=== PATIENT | female | born 1965 | race Caucasian/White ===

== ENCOUNTER 2017-12-27 17:31 | Inpatient (IN) | payer MEDICARE, MEDICAID ==
[~2017-12-27] VITALS: Ht 165.1 cm; Wt 80.6 kg
[~2017-12-27 17:31] MED LIST: ACIPHEX20 MG PO; ANTIDEPRESSANT; ATARAX25 MG PO; ATIVAN0.5 MG PO; BENTYL10 MG PO; CELEXA20 MG PO; CLARITIN10 MG PO; CLONAZEPAM1 M1 PO; DAYPRO600 M1 PO; DELTASONE5 MG PO; EES400 MG PO; Fioricet 325 MG1 TAB PO; K-DUR 20MEQ20 MEQ PO; KENALOG0.025% TP; KLONOPIN2 MG PO; LANTUS100 U/ML SC; LEXAPRO5 MG; LISINOPRIL PO; LISINOPRIL2.5 MG PO; METFORMIN850 MG PO; MYCOLOG CREAM 115 GM PO; NEW MED; NORVASC5 MG PO; POTASSIUM20 MEQ PO; PRILOSEC20 M1 PO; PRILOSEC40 MG PO; SEROQUEL400 M1 PO; SYNTHROID,LEVO75 MCG PO; SYNTHROID0.1 MG PO; TOPAMAX2 MG; TOPAMAX50 MG PO; VICODIN 5/500 505 MG PO; VISTARIL25 M1; ZESTRIL10 MG PO; ZESTRIL5 MG PO; ZOFRAN ODT4 MG SL
[2017-12-27 17:32] VITALS: BP 152/91
[2017-12-27 17:51] LABS: BILIRUBIN NEGATIVE (NEGATIVE); BLOOD NEGATIVE (NEGATIVE); CLARITY CLEAR (CLEAR); COLOR YELLOW (YELLOW); GLUCOSE NEGATIVE (NEGATIVE); KETONE NEGATIVE (NEGATIVE); LEUKO ESTERASE NEGATIVE (NEGATIVE); NITRITE NEGATIVE (NEGATIVE); PH 6.5 (5.0-9.0); SPECIFIC GRAVITY 1.025 (1.005-1.030); UROBILINOGEN 0.2 E.U./dl (0.2-1.0)
[2017-12-27 18:02] LABS: BACTERIA 1+; MUCOUS TRACE; RBC 0-2 rbc/hpf (0-2)
[2017-12-27 18:43] LABS: BASO # 0.1 10*3/uL (0.0-0.1); BASO % 0.8 % (0.0-1.0); EOS # 0.2 10*3/uL (0.0-0.4); EOS % 2.7 % (1.0-4.0); HEMATOCRIT 40.2 % (37.0-47.0); LYMPH # 2.1 10*3/uL (1.3-4.4); LYMPH % 27.7 % (27.0-41.0); MEAN CELL VOLUME 82.2 fl (81.0-99.0); MEAN CORPUSCULAR HGB 28.6 pg (27.0-31.0); MEAN CORPUSCULAR HGB CONC 34.8 g/dl (33.0-37.0); MEAN PLATELET VOLUME 9.8 fl (9.6-12.3); MONO # 0.6 10*3/uL (0.1-1.0); MONO % 7.4 % (3.0-9.0); NEUT # 4.6 10*3/uL (2.3-7.9); NEUT % 60.7 % (47.0-73.0); PLATELET COUNT AUTOMATED 203 10*3/uL (130-400); RED BLOOD COUNT 4.89 10*6/uL (4.10-5.10); RED CELL DISTRI WIDTH 14.7 % (0-14.5); WHITE BLOOD COUNT 7.5 10*3/uL (4.8-10.8)
[2017-12-27 18:58] LABS: ALBUMIN 3.5 gm/dl (3.1-4.5); CREATININE 1.46 mg/dL (0.55-1.02); POTASSIUM 3.8 mmol/L (3.5-5.1); TOTAL PROTEIN 6.9 gm/dL (6.4-8.2)
[2017-12-27 20:52] VITALS: BP 142/72
[2017-12-27] MEDS ORDERED: PRISTIQ50 MG PO (21:21)
[2017-12-27] MEDS ORDERED: RANITIDINE HCL150 M1 PO (21:21)
[2017-12-27] MEDS ORDERED: Synthroid,Levo50 MCG PO (21:22)
[2017-12-27] MEDS ORDERED: COZAAR100 MG PO (21:22)
[2017-12-27] MEDS ORDERED: HYDROXYZINE HCL50 MG PO ×2 (21:24)
[2017-12-27 23:31] VITALS: BP 170/100
[2017-12-28] VITALS (7 sets, daily range): BP systolic 118–168; BP diastolic 76–90
[2017-12-28 06:43] LABS: BASO # 0.1 10*3/uL (0.0-0.1); BASO % 0.9 % (0.0-1.0); EOS # 0.1 10*3/uL (0.0-0.4); EOS % 2.1 % (1.0-4.0); HEMATOCRIT 38.3 % (37.0-47.0); HEMOGLOBIN 13.4 g/dl (12.0-16.0); LYMPH # 1.8 10*3/uL (1.3-4.4); LYMPH % 31.2 % (27.0-41.0); MEAN CELL VOLUME 81.8 fl (81.0-99.0); MEAN CORPUSCULAR HGB 28.6 pg (27.0-31.0); MEAN PLATELET VOLUME 9.8 fl (9.6-12.3); MONO # 0.5 10*3/uL (0.1-1.0); MONO % 8.5 % (3.0-9.0); NEUT # 3.2 10*3/uL (2.3-7.9); NEUT % 56.3 % (47.0-73.0); PLATELET COUNT AUTOMATED 186 10*3/uL (130-400); RED BLOOD COUNT 4.68 10*6/uL (4.10-5.10); RED CELL DISTRI WIDTH 14.7 % (0-14.5); WHITE BLOOD COUNT 5.7 10*3/uL (4.8-10.8)
[2017-12-28 06:59] LABS: ALBUMIN 3.3 gm/dl (3.1-4.5); ALKALINE PHOSPHATASE 113 U/L (45-117); BUN 16 mg/dl (7-24); CHLORIDE 110 mmol/L (98-107); CHOLESTEROL 131 mg/dL (<200); CREATININE 1.05 mg/dL (0.55-1.02); FREE T4 0.67 ng/dl (0.76-1.46); HDL CHOLESTEROL 53 mg/dl (40-60); LDL CHOLESTEROL 66 mg/dL (9-159); PHOSPHOROUS 2.9 mg/dL (2.5-4.9); POTASSIUM 3.5 mmol/L (3.5-5.1); SGOT/AST 13 IU/L (3-35); SGPT/ALT 17 U/L (12-78); SODIUM 143 mmol/L (136-145); TOTAL PROTEIN 6.5 gm/dL (6.4-8.2); TRIGLYCERIDES 62 mg/dl (<150); VLDL CHOLESTEROL 12 mg/dL (6-40)
[2017-12-28 07:35] LABS: VITAMIN D, 25-HYDROXY 17.6 ng/mL (30-100)
[2017-12-29] VITALS: BP 143/70
[2017-12-29 06:51] LABS: BUN 11 mg/dl (7-24); CHLORIDE 108 mmol/L (98-107); CREATININE 0.96 mg/dL (0.55-1.02); POTASSIUM 3.6 mmol/L (3.5-5.1); SODIUM 142 mmol/L (136-145)
[2017-12-29 08:00] VITALS: BP 154/84
[2017-12-29 12:00] VITALS: BP 148/77
[2017-12-29] MEDS ORDERED: ZOFRAN ODT4 MG SL (13:39)
[2017-12-29] MEDS ORDERED: HYDROCODONE-AC1 EAC1 PO (13:39)
== END 2017-12-29 17:42 | disposition home or self-care (01) | DRG 393 ==
LOC: ED 17:31 → 5E 20:09 → EDHOLD 20:09 → 5E 20:25
PROVIDERS: Emergency Medicine; Family Medicine; Internal Medicine; Student in an Organized Health Care Education/Training Program
DX: K37 Unspecified appendicitis (principal); N17.0 Acute kidney failure with tubular necrosis; E44.0 Moderate protein-calorie malnutrition; K59.00 Constipation, unspecified; N18.3 Chronic kidney disease, stage 3 (moderate); D49.7 Neoplasm of unspecified behavior of endocrine glands and other parts of nervous system; R74.8 Abnormal levels of other serum enzymes; R91.1 Solitary pulmonary nodule; F31.9 Bipolar disorder, unspecified; I12.9 Hypertensive chronic kidney disease with stage 1 through stage 4 chronic kidney disease, or unspecified chronic kidney disease; E11.65 Type 2 diabetes mellitus with hyperglycemia; K21.9 Gastro-esophageal reflux disease without esophagitis; K76.0 Fatty (change of) liver, not elsewhere classified; E66.9 Obesity, unspecified; Z87.442 Personal history of urinary calculi; Z91.041 Radiographic dye allergy status; Z88.0 Allergy status to penicillin; Z98.2 Presence of cerebrospinal fluid drainage device; Z79.4 Long term (current) use of insulin; Z88.8 Allergy status to other drugs, medicaments and biological substances; Z79.899 Other long term (current) drug therapy; Z90.710 Acquired absence of both cervix and uterus; Z83.3 Family history of diabetes mellitus; Z82.49 Family history of ischemic heart disease and other diseases of the circulatory system; Z80.8 Family history of malignant neoplasm of other organs or systems; Z90.49 Acquired absence of other specified parts of digestive tract; Z83.6 Family history of other diseases of the respiratory system; Z68.29 Body mass index [BMI] 29.0-29.9, adult

== ENCOUNTER 2018-04-10 23:22 | Emergency (ER) | payer MEDICARE, MEDICAID ==
[~2018-04-10] VITALS: Ht 165.1 cm; Wt 81.6 kg
--- NOTE | ~2018-04-10 | EKG ---
[place], [place] ELECTROCARDIOGRAM REPORT NAME: SARI QUINONES UNIT #: [id number] ROOM: DOCTOR: EPIPHANY DRAFT REPORT BIRTHDATE: [birth year] [facility] Test Date: 2018-04-11 Test Time: 00:25:10 Pat Name: SARI QUINONES Department: ER Room: 3 Gender: F Senior Qualitative Researcher: Lindsey Judd : [id number] Requested By: PEREZ JONES Order Number: [id number] Reading MD: Brian Acharya MD Measurements Intervals [place] Rate: 105 P: 28 ID: [id number] QRS: -28 QRSD: 107 T: 44 QT: 387 QTc: 512 Interpretive Statements Sinus tachycardia Borderline left axis deviation RSR' in V1 or V2, probably normal variant Prolonged QT interval Baseline wander in lead(s) V3 No previous ECG available for comparison Electronically Signed On 04-13-2018 8:25:14 PST by Brian Acharya MD CM:EKGRPT:ELECTROCARDIOGRAM REPORT [id number] PEREZ JONES MD EPIPHANY DRAFT REPORT PEREZ JONES MD
[~2018-04-10 23:22] MED LIST changes: +COZAAR100 MG PO; +HYDROCODONE-AC1 EAC1 PO; +HYDROXYZINE HCL50 MG PO; +PRISTIQ50 MG PO; +RANITIDINE HCL150 M1 PO; +Synthroid,Levo50 MCG PO
[2018-04-10 23:27] VITALS: BP 156/92
[2018-04-11 00:29] LABS: HEMATOCRIT 42.8 % (37.0-47.0); HEMOGLOBIN 15.1 g/dl (12.0-16.0); MEAN CELL VOLUME 79.9 fl (81.0-99.0); MEAN CORPUSCULAR HGB 28.2 pg (27.0-31.0); MEAN CORPUSCULAR HGB CONC 35.3 g/dl (33.0-37.0); MEAN PLATELET VOLUME 9.6 fl (9.6-12.3); PLATELET COUNT AUTOMATED 208 10*3/uL (130-400); RED BLOOD COUNT 5.36 10*6/uL (4.10-5.10); RED CELL DISTRI WIDTH 14.5 % (0-14.5); WHITE BLOOD COUNT 11.5 10*3/uL (4.8-10.8)
[2018-04-11 00:43] LABS: ALBUMIN 3.4 gm/dl (3.1-4.5); ALKALINE PHOSPHATASE 141 U/L (45-117); BUN 16 mg/dl (7-24); CHLORIDE 107 mmol/L (98-107); CREATININE 1.13 mg/dL (0.55-1.02); LIPASE 35 U/L (73-393); POTASSIUM 3.8 mmol/L (3.5-5.1); SGOT/AST 12 IU/L (3-35); SGPT/ALT 19 U/L (12-78); SODIUM 139 mmol/L (136-145); TOTAL PROTEIN 7.2 gm/dL (6.4-8.2)
[2018-04-11 00:44] LABS: TROPONIN I < 0.015 ng/ml (<0.045)
[2018-04-11 00:47] LABS: BASOPHILS 1 % (0-1); PLATELET SUFFICIENCY NORMAL (NORMAL); TOTAL CELLS COUNTED 100 #CELLS
[2018-04-11 00:58] LABS: BILIRUBIN NEGATIVE (NEGATIVE); BLOOD NEGATIVE (NEGATIVE); CLARITY SL CLOUDY (CLEAR); COLOR YELLOW (YELLOW); GLUCOSE NEGATIVE (NEGATIVE); KETONE NEGATIVE (NEGATIVE); LEUKO ESTERASE NEGATIVE (NEGATIVE); NITRITE NEGATIVE (NEGATIVE); PH 8.5 (5.0-9.0); SPECIFIC GRAVITY 1.015 (1.005-1.030); UROBILINOGEN 0.2 E.U./dl (0.2-1.0)
[2018-04-11 01:05] LABS: BACTERIA TRACE; EPITHELIAL CELLS 40-45
[2018-04-11] MEDS ORDERED: ZOFRAN4 MG PO (03:26)
[2018-04-11] MEDS ORDERED: ZANTAC 150150 MG PO (03:26)
== END 2018-04-11 03:30 | disposition home or self-care (01) ==
LOC: ED 23:22
PROVIDERS: Emergency Medicine Emergency Medical Services
DX: R10.9 Unspecified abdominal pain (principal); R11.2 Nausea with vomiting, unspecified; K21.9 Gastro-esophageal reflux disease without esophagitis; E11.22 Type 2 diabetes mellitus with diabetic chronic kidney disease; I12.9 Hypertensive chronic kidney disease with stage 1 through stage 4 chronic kidney disease, or unspecified chronic kidney disease; N18.3 Chronic kidney disease, stage 3 (moderate); E66.9 Obesity, unspecified; Z91.041 Radiographic dye allergy status; Z88.0 Allergy status to penicillin; Z88.8 Allergy status to other drugs, medicaments and biological substances; Z79.899 Other long term (current) drug therapy; Z90.710 Acquired absence of both cervix and uterus; Z90.49 Acquired absence of other specified parts of digestive tract

== ENCOUNTER 2018-05-21 13:32 | Emergency (ER) | payer MEDICARE ==
[~2018-05-21] VITALS: Ht 165.1 cm; Wt 80.7 kg
[~2018-05-21 13:32] MED LIST changes: +ZANTAC 150150 MG PO; +ZOFRAN4 MG PO
[2018-05-21 13:33] VITALS: BP 143/95
[2018-05-21] MEDS ORDERED: FLONASE ALLERG9.9 ML NAS (14:31)
[2018-05-21] MEDS ORDERED: DOXYCYCLINE100 MG PO (14:31)
== END 2018-05-21 14:41 | disposition home or self-care (01) ==
LOC: ED 13:32
DX: J01.90 Acute sinusitis, unspecified (principal); I10 Essential (primary) hypertension; E03.9 Hypothyroidism, unspecified; Z79.899 Other long term (current) drug therapy; Z88.0 Allergy status to penicillin; Z91.041 Radiographic dye allergy status; Z88.8 Allergy status to other drugs, medicaments and biological substances

== ENCOUNTER 2019-02-23 18:47 | Emergency (ER) | payer MEDICARE, MEDICAID ==
[~2019-02-23] VITALS: Ht 162.5 cm; Wt 77.1 kg
[2019-02-23 18:47] VITALS: BP 165/91
[~2019-02-23 18:47] MED LIST changes: +DOXYCYCLINE100 MG PO; +FLONASE ALLERG9.9 ML NAS
[2019-02-23] MEDS ORDERED: METOPROLOL SUC100 M1 PO (19:20)
[2019-02-23] MEDS ORDERED: IBUPROFEN600 MG PO (21:00)
[2019-02-23] MEDS ORDERED: ROBAXIN-750750 MG PO (21:00)
== END 2019-02-23 21:12 | disposition home or self-care (01) ==
LOC: ED 18:47
DX: S29.012A Strain of muscle and tendon of back wall of thorax, initial encounter (principal); Z79.899 Other long term (current) drug therapy; Z88.0 Allergy status to penicillin; Z88.8 Allergy status to other drugs, medicaments and biological substances; Z91.041 Radiographic dye allergy status; X50.1XXA Overexertion from prolonged static or awkward postures, initial encounter; Y93.89 Activity, other specified; Y92.89 Other specified places as the place of occurrence of the external cause; Y99.8 Other external cause status

== ENCOUNTER 2019-03-19 11:41 | Emergency (ER) | payer MEDICARE, MEDICAID ==
[~2019-03-19] VITALS: Ht 162.5 cm; Wt 81.6 kg
[~2019-03-19 11:41] MED LIST changes: +IBUPROFEN600 MG PO; +METOPROLOL SUC100 M1 PO; +ROBAXIN-750750 MG PO
[2019-03-19 11:42] VITALS: BP 156/100
[2019-03-19] MEDS ORDERED: NORCO 5-325 TA1 EACH PO (12:34)
== END 2019-03-19 12:40 | disposition home or self-care (01) ==
LOC: ED 11:41
DX: B02.29 Other postherpetic nervous system involvement (principal); K21.9 Gastro-esophageal reflux disease without esophagitis; G43.909 Migraine, unspecified, not intractable, without status migrainosus; Z91.041 Radiographic dye allergy status; Z88.0 Allergy status to penicillin; Z88.8 Allergy status to other drugs, medicaments and biological substances; Z79.899 Other long term (current) drug therapy; Z90.710 Acquired absence of both cervix and uterus; Z90.49 Acquired absence of other specified parts of digestive tract

== ENCOUNTER 2019-05-18 18:20 | Emergency (ER) | payer OTHER, MEDICAID ==
[~2019-05-18] VITALS: Ht 165.1 cm; Wt 79.4 kg
[~2019-05-18 18:20] MED LIST changes: +NORCO 5-325 TA1 EACH PO
[2019-05-18 18:28] VITALS: BP 187/92
[2019-05-18 19:02] LABS: BILIRUBIN NEGATIVE (NEGATIVE); CLARITY SL CLOUDY (CLEAR); COLOR YELLOW (YELLOW); GLUCOSE NEGATIVE (NEGATIVE); KETONE NEGATIVE (NEGATIVE); SPECIFIC GRAVITY 1.025 (1.005-1.030)
[2019-05-18 19:16] LABS: BASO # 0.1 10*3/uL (0.0-0.1); BASO % 0.6 % (0.0-1.0); EOS # 0.1 10*3/uL (0.0-0.4); EOS % 0.8 % (1.0-4.0); HEMATOCRIT 39.2 % (37.0-47.0); LYMPH % 9.4 % (27.0-41.0); MEAN CELL VOLUME 83.6 fl (81.0-99.0); MEAN CORPUSCULAR HGB 29.9 pg (27.0-31.0); MEAN CORPUSCULAR HGB CONC 35.7 g/dl (33.0-37.0); MEAN PLATELET VOLUME 10.4 fl (9.6-12.3); MONO % 9.3 % (3.0-9.0); NEUT # 8.7 10*3/uL (2.3-7.9); NEUT % 79.4 % (47.0-73.0); PLATELET COUNT AUTOMATED 182 10*3/uL (130-400); RED BLOOD COUNT 4.69 10*6/uL (4.10-5.10); RED CELL DISTRI WIDTH 13.6 % (0-14.5); WHITE BLOOD COUNT 10.9 10*3/uL (4.8-10.8)
[2019-05-18 19:18] LABS: BLOOD TRACE-INTACT (NEGATIVE); LEUKO ESTERASE 2+ (NEGATIVE); NITRITE POSITIVE (NEGATIVE); UROBILINOGEN 0.2 E.U./dl (0.2-1.0)
[2019-05-18 19:20] LABS: BACTERIA 3+; WBC TNTC wbc/hpf (0-5)
[2019-05-18 19:31] LABS: ALBUMIN 3.9 gm/dl (3.1-4.5); ALKALINE PHOSPHATASE 164 U/L (45-117); BUN 13 mg/dl (7-24); CHLORIDE 108 mmol/L (98-107); CREATININE 1.04 mg/dL (0.55-1.02); LIPASE 36 U/L (73-393); POTASSIUM 3.3 mmol/L (3.5-5.1); SGOT/AST 11 IU/L (3-35); SGPT/ALT 26 U/L (12-78); SODIUM 141 mmol/L (136-145); TOTAL PROTEIN 7.6 gm/dL (6.4-8.2)
[2019-05-18] MEDS ORDERED: PYRIDIUM100 MG PO (23:11)
[2019-05-18] MEDS ORDERED: CEPHALEXIN500 M1 PO (23:11)
[2019-05-18] MEDS ORDERED: ZOFRAN4 MG PO (23:11)
== END 2019-05-18 23:24 | disposition home or self-care (01) ==
LOC: ED 18:20
PROVIDERS: Nurse Practitioner Family
DX: N39.0 Urinary tract infection, site not specified (principal); I12.9 Hypertensive chronic kidney disease with stage 1 through stage 4 chronic kidney disease, or unspecified chronic kidney disease; E11.22 Type 2 diabetes mellitus with diabetic chronic kidney disease; N18.3 Chronic kidney disease, stage 3 (moderate); K21.9 Gastro-esophageal reflux disease without esophagitis; G43.909 Migraine, unspecified, not intractable, without status migrainosus; F41.9 Anxiety disorder, unspecified; F31.9 Bipolar disorder, unspecified; Z91.041 Radiographic dye allergy status; Z88.0 Allergy status to penicillin; Z90.49 Acquired absence of other specified parts of digestive tract; Z88.8 Allergy status to other drugs, medicaments and biological substances; Z79.899 Other long term (current) drug therapy; Z90.710 Acquired absence of both cervix and uterus

== ENCOUNTER 2019-06-01 18:55 | Emergency (ER) | payer OTHER, MEDICAID ==
[~2019-06-01] VITALS: Wt 79.4 kg
[~2019-06-01 18:55] MED LIST changes: +CEPHALEXIN500 M1 PO; +PYRIDIUM100 MG PO
[2019-06-01 19:12] VITALS: BP 181/96
[2019-06-01 19:44] LABS: BILIRUBIN NEGATIVE (NEGATIVE); BLOOD NEGATIVE (NEGATIVE); CLARITY SL CLOUDY (CLEAR); COLOR YELLOW (YELLOW); GLUCOSE NEGATIVE (NEGATIVE); KETONE NEGATIVE (NEGATIVE); LEUKO ESTERASE NEGATIVE (NEGATIVE); NITRITE NEGATIVE (NEGATIVE); UROBILINOGEN 0.2 E.U./dl (0.2-1.0)
[2019-06-01 19:52] LABS: BACTERIA 2+; MUCOUS TRACE; RBC 0-2 rbc/hpf (0-2); WBC 21-30 wbc/hpf (0-5)
[2019-06-01 20:36] LABS: BASO % 0.6 % (0.0-1.0); EOS # 0.1 10*3/uL (0.0-0.4); HEMATOCRIT 37.1 % (37.0-47.0); HEMOGLOBIN 12.7 g/dl (12.0-16.0); LYMPH # 1.4 10*3/uL (1.3-4.4); LYMPH % 18.9 % (27.0-41.0); MEAN CELL VOLUME 84.1 fl (81.0-99.0); MEAN CORPUSCULAR HGB 28.8 pg (27.0-31.0); MEAN CORPUSCULAR HGB CONC 34.2 g/dl (33.0-37.0); MEAN PLATELET VOLUME 9.9 fl (9.6-12.3); MONO # 0.6 10*3/uL (0.1-1.0); MONO % 7.6 % (3.0-9.0); NEUT # 5.2 10*3/uL (2.3-7.9); NEUT % 71.1 % (47.0-73.0); PLATELET COUNT AUTOMATED 229 10*3/uL (130-400); RED BLOOD COUNT 4.41 10*6/uL (4.10-5.10); RED CELL DISTRI WIDTH 13.3 % (0-14.5); WHITE BLOOD COUNT 7.2 10*3/uL (4.8-10.8)
[2019-06-01 20:50] LABS: ALBUMIN 3.5 gm/dl (3.1-4.5); ALKALINE PHOSPHATASE 191 U/L (45-117); BUN 9 mg/dl (7-24); CHLORIDE 107 mmol/L (98-107); CREATININE 1.09 mg/dL (0.55-1.02); SGOT/AST 17 IU/L (3-35); SGPT/ALT 32 U/L (12-78); SODIUM 142 mmol/L (136-145); TOTAL PROTEIN 7.7 gm/dL (6.4-8.2)
[2019-06-01] MEDS ORDERED: K-TAB20 MEQ PO (22:17)
[2019-06-01] MEDS ORDERED: DIFLUCAN150 MG PO (22:17)
[2019-06-01] MEDS ORDERED: OMNICEF300 MG PO (22:17)
== END 2019-06-01 22:22 | disposition home or self-care (01) ==
LOC: ED 18:55
PROVIDERS: Emergency Medicine Emergency Medical Services
DX: J02.9 Acute pharyngitis, unspecified (principal); R51 Headache; M54.2 Cervicalgia; I12.9 Hypertensive chronic kidney disease with stage 1 through stage 4 chronic kidney disease, or unspecified chronic kidney disease; E11.22 Type 2 diabetes mellitus with diabetic chronic kidney disease; N18.3 Chronic kidney disease, stage 3 (moderate); K21.9 Gastro-esophageal reflux disease without esophagitis; F31.9 Bipolar disorder, unspecified; Z91.041 Radiographic dye allergy status; Z88.0 Allergy status to penicillin; Z88.8 Allergy status to other drugs, medicaments and biological substances; Z90.49 Acquired absence of other specified parts of digestive tract; Z79.899 Other long term (current) drug therapy; Z98.2 Presence of cerebrospinal fluid drainage device

== ENCOUNTER 2020-04-11 15:06 | Emergency (ER) | payer OTHER, MEDICAID ==
[~2020-04-11] VITALS: Ht 165.1 cm; Wt 77.1 kg
[~2020-04-11 15:06] MED LIST changes: +DIFLUCAN150 MG PO; +K-TAB20 MEQ PO; +OMNICEF300 MG PO
[2020-04-11 15:50] VITALS: BP 146/81
== END 2020-04-11 20:18 | disposition home or self-care (01) ==
LOC: ED 15:06
DX: U07.1 COVID-19 (principal); I12.9 Hypertensive chronic kidney disease with stage 1 through stage 4 chronic kidney disease, or unspecified chronic kidney disease; E11.22 Type 2 diabetes mellitus with diabetic chronic kidney disease; N18.30 Chronic kidney disease, stage 3 unspecified; F31.9 Bipolar disorder, unspecified; K21.9 Gastro-esophageal reflux disease without esophagitis; F41.9 Anxiety disorder, unspecified; G43.909 Migraine, unspecified, not intractable, without status migrainosus; Z91.041 Radiographic dye allergy status; Z88.0 Allergy status to penicillin; Z88.8 Allergy status to other drugs, medicaments and biological substances; Z79.899 Other long term (current) drug therapy